=== PATIENT | male | born 1980 | race Caucasian/White ===

== ENCOUNTER 2024-08-08 12:21 | Outpatient (AMB) | payer OTHER, SELFPAY ==
[2024-08-08 13:56] VITALS: BP 140/100; PULSE 112; TEMP 37.3; O2SAT 98
--- NOTE | 2024-08-08 13:56 | MHC.OFFWIV ---
Intake Vital Signs 08/08/24 13:56 Weight 203 lb BP 140/100 H Blood Pressure Location Lt brachial Pulse 112 H Pulse Source Pulse Oximeter Temp 99.1 F Temp Source Oral Pulse Oximetry (%) 98 Oxygen Delivery Method Room Air Intake Visit Reasons: [employer]-sore throat, cough Intake Note: Patient here for sore throat, cough and slight runny nose. Patient Tobacco Use Status: Never used Tobacco Allergies No Known Allergies Allergy (Unverified 08/08/24 13:58) Do you need a note to return to daycare/school/sports/work: No HPI [employer]-sore throat, cough HPI Details This note is constructed using voice recognition software. 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 The patient is a 43 year old male who presents to the clinic today with cough, sore throat for the past 2 days. He reports his child was recently sick with an upper respiratory infection, similar symptoms. He denies fever, chills, shortness of breath, body aches. He has taken some Benadryl with some effect. [facility], [facility] Social History Patient Tobacco Use Status: Never used Tobacco Review of Systems Const All systems reviewed & are unremarkable except as noted in HPI and below Physical Exam Vital Signs: Last Vital Signs Temp 99.1 F 08/08/24 13:56 Pulse 112 H 08/08/24 13:56 BP 140/100 H 08/08/24 13:56 Pulse Ox 98 08/08/24 13:56 Oxygen Delivery Method Room Air 08/08/24 13:56 Const General: cooperative, healthy appearing, comfortable and no acute distress Orientation/consciousness: patient oriented x3 Limitations: no limitations HEENT Head: Yes normal to inspection Ears: hearing grossly normal bilaterally, external ears normal and TM abnormal retracted General nose exam: Normal external nose present, No nasal discharge present and Abnormal mucous membranes and turbinates present boggy and pale Face and sinus: Yes normal facial exam and Yes sinuses nontender Mouth: Normal oral and palatal mucosa present and moist mucous membranes Throat: Yes tonsils normal, Yes uvula midline, Yes posterior oropharynx abnormal (Erythema), Yes postnasal drainage and Yes cobblestoning Eyes General: appearance normal, both eyes and all related structures Neck Neck: Yes normal visual inspection Resp Effort & Inspection: normal respiratory effort, able to speak in complete sentences, Actively coughing, no respiratory distress, not tachypneic, no tripod positioning and no use of accessory muscles Auscultation: clear to auscultation bilaterally Cardio Rate: regular rate Rhythm: regular rhythm Heart sounds: normal S1 and S2 Skin General skin exam: no rashes or lesions noted Neuro General: patient oriented x3 Extrem General: Yes normal to inspection and Yes no clubbing, cyanosis or edema Assessment & Plan Assessment & Plan (1) Allergic rhinitis: Code(s): J30.9 - Allergic rhinitis, unspecified Qualifiers: Allergic rhinitis trigger: unspecified Allergic rhinitis seasonality: unspecified Qualified Code(s): J30.9 - Allergic rhinitis, unspecified Plan: In office rapid strep negative. Supportive measures encouraged and reviewed. Advised patient to try a Flonase nasal spray and second-generation antihistamine such as Zyrtec, Claritin, Maki or similar. Advised consideration of sinus rinse if needed. Advised patient to follow up with primary care provider with worsening or failure to resolve. Plan See above for full details and plan. Coding Level of Care Code New Pt Level 3 (66384) Diagnoses Allergic rhinitis, unspecified seasonality, unspecified trigger J30.9 Allergic rhinitis trigger: unspecified Allergic rhinitis seasonality: unspecified
== END 2024-08-08 14:23 | disposition home or self-care (01) ==
PROVIDERS: PCP Internal Medicine; Visit Provider Registered Nurse
DX: J30.9 Allergic rhinitis, unspecified (principal); Z13.9 Encounter for screening, unspecified

== ENCOUNTER → 2024-08-08 12:21 | Outpatient (BNVA) | payer OTHER, SELFPAY | PROVIDERS: PCP Internal Medicine; Visit Provider Registered Nurse | DX: J30.9 Allergic rhinitis, unspecified (principal) | CPT/HCPCS: 87880 ==